=== PATIENT | female | born 1985 ===

== ENCOUNTER 2017-01-09 19:32 | Inpatient (IN) | payer OTHER ==
[2017-01-09] MEDS ORDERED: Piperacillin/Tazobact 4.5 GM in Sodium Chloride 0.9% 100 ML IVPB STA (19:53)
--- NOTE | 2017-01-09 20:01 | ED PDOC ---
HPI: Wound Care - HPI Time Seen by Provider: 01/09/17 19:46 Chief Complaint (Nursing): Wound Check Chief Complaint (Provider): my wound is draining History Per: Patient Exam Limitations: no limitations Current Symptoms Are (Timing): Still Present Location Of Injury: Posterior: Buttock Quality Of Symptoms: Painful Severity: Moderate Additional Complaint(s): 31yo female had wound to buttock debrided several weeks ago, now with pain and drainage from site. Denies fever. States +pain with sitting and walking. Past Medical History Reviewed: Historical Data, Nursing Documentation, Vital Signs Vital Signs: Last Vital Signs Temp 98.6 F 01/09/17 19:38 Pulse 88 01/09/17 19:38 Resp 16 01/09/17 19:38 BP 118/67 01/09/17 19:38 Pulse Ox 100 01/09/17 19:38 - Medical History PMH: No Chronic Diseases - Family History Family History: States: Unknown Family Hx - Living Arrangements Living Arrangements: With Family - Social History Current smoker - smoking cessation education provided: No - Home Medications Home Medications: Ambulatory Orders Medication Instructions Recorded Amoxicillin [Amoxil 250 mg Cap] 1 tab PO BID 01/09/17 - Allergies Allergies/Adverse Reactions: Allergies Allergy/AdvReac Type Severity Reaction Status Date / Time No Known Allergies Allergy Verified 01/09/17 19:38 Review of Systems ROS Statement: Except As Marked, All Systems Reviewed And Found Negative Constitutional: Negative for: Fever, Chills Respiratory: Negative for: Cough, Shortness of Breath Gastrointestinal: Negative for: Nausea, Vomiting Genitourinary Female: Negative for: Dysuria, Frequency Musculoskeletal: Positive for: Back Pain, Other (buttock pain) Skin: Negative for: Rash, Lesions Neurological: Positive for: Numbness (buttocks). Negative for: Weakness Physical Exam - Reviewed Vital Signs Reviewed: Yes - Physical Exam Appears: Positive for: Non-toxic Head Exam: Positive for: ATRAUMATIC Skin: Positive for: Normal Color, Warm Eye Exam: Positive for: EOMI. Negative for: Periorbital swelling Neck: Positive for: Normal, Painless ROM Cardiovascular/Chest: Negative for: Tachycardia Respiratory: Negative for: Respiratory Distress Pulses-Radial (L): 2+ Pulses-Radial (R): 2+ Gastrointestinal/Abdominal: Negative for: Tenderness Back: Positive for: Other (R upper buttock with 5cm open draining wound, tender w mild erythema) Extremity: Positive for: Normal ROM. Negative for: Swelling Neurologic/Psych: Positive for: Alert, Oriented. Negative for: Motor/Sensory Deficits - Laboratory Results Result Diagrams: 01/11/17 06:10 01/10/17 06:50 - ECG O2 Sat by Pulse Oximetry: 100 Pulse Ox Interpretation: Normal Medical Decision Making Medical Decision Making: labs reviewed, mild anemia. Type and screen ordered. Preg neg. Udip unremarkable. Wound cultured and Zosyn initiated. D/w Dr Prasad hospitalist for admission. Likely to require plastics consult. Disposition - Clinical Impression Clinical Impression: Open wound - Patient ED Disposition Is Patient to be Admitted: Yes Counseled Patient/Family Regarding: Studies Performed, Diagnosis - Disposition Disposition Time: 20:25 Condition: STABLE - Pt Status Changed To: Hospital Disposition Of: Inpatient - Admit Certification Admit to Inpatient:: After my assessment, the patient will require hospitalization for at least two midnights. This is because of the severity of symptoms shown, intensity of services needed, and/or the medical risk in this patient being treated as an outpatient. - POA Present On Arrival: None
[2017-01-09 20:35] LABS: BASO # 0.1 K/uL (0.0-0.2); BASO % 0.8 % (0.0-2.0); EOS # 0.4 K/uL (0.0-0.7); EOS % 4.3 % (0.0-4.0); HEMATOCRIT 32.7 % (34.0-47.0); LYMPH % 35.6 % (20.0-40.0); MEAN CORPUSCULAR HEMOGLOBIN 24.3 pg (27.0-31.0); MEAN CORPUSCULAR HGB CONC 31.6 g/dL (33.0-37.0); MEAN PLATELET VOLUME 9.2 fl (7.2-11.7); MONO # 0.7 K/uL (0.0-0.8); MONO % 8.7 % (0.0-10.0); NEUT # 4.3 K/uL (1.8-7.0); NEUT % 50.6 % (50.0-75.0); RED CELL DISTRIBUTION WIDTH 16.3 % (11.5-14.5); WHITE BLOOD COUNT 8.4 K/uL (4.8-10.8)
[2017-01-09 20:47] LABS: ALB/GLOB RATIO 1.3 (1.0-2.1); ALKALINE PHOSPHATASE 53 U/L (38-126); ALT/SGPT 31 U/L (9-52); AST/SGOT 19 U/L (14-36); BILIRUBIN,TOTAL 0.3 mg/dl (0.2-1.3); BLOOD UREA NITROGEN 16 mg/dl (7-17); CALCIUM 9.4 mg/dL (8.4-10.2); CARBON DIOXIDE 24 mmol/L (22-30); CHLORIDE 104 mmol/L (98-107); GFR AFRICAN-AMERICAN > 60; GLUCOSE,RANDOM 97 mg/dL (65-105); POTASSIUM 3.9 MMOL/L (3.6-5.0); SODIUM 139 mmol/l (132-148); TOTAL PROTEIN 7.4 G/DL (6.3-8.2)
--- NOTE | 2017-01-09 22:20 | CP.PCM.HP ---
History of Present Illness - History of Present Illness History of Present Illness: PCP: not on staff Chief Complaint: draining wound at buttock Patient seen and examined in the ED HPI: 31 years old female with no significant medical hx, had wound debridement at the buttock 4 weeks ago. She now comes with moderate, continuous pain at the site on the left buttock , increasing on sitting and walking, and started having Serous drainage today. No Fever, nausea nor vomits, no diarrhea, dysuria nor urinary frequency. PMH: No chronic disease PSH: Cesarian section X2 SH: Never smoked; No Alcohol; no illegal drug use; Live with family; work at [employer] FH: Unknown Family hx Allergies: NKDA Medication: Amoxicillin Present on Admission - Present on Admission Any Indicators Present on Admission: No History of DVT/PE: No History of Uncontrolled Diabetes: No Urinary Catheter: No Decubitus Ulcer Present: No Review of Systems - Constitutional Constitutional: absent: Anorexia, Chills, Fatigue, Fever, Headache - EENT Eyes: absent: Blurred Vision, Decreased Night Vision, Diplopia, Requires Corrective Lenses, Sees Flashes Ears: absent: Ear Pain, Tinnitus, Dizziness Nose/Mouth/Throat: absent: Epistaxis, Nasal Congestion - Cardiovascular Cardiovascular: absent: Chest Pain, Dyspnea, Leg Edema - Respiratory Respiratory: absent: Cough, Wheezing, Chest Congestion - Gastrointestinal Gastrointestinal: absent: Constipation, Diarrhea, Nausea, Vomiting - Genitourinary Genitourinary: absent: Dysuria, Flank Pain, Hematuria - Musculoskeletal Musculoskeletal: absent: Arthralgias, Back Pain, Numbness - Integumentary Additional comments: Left buttock with painful oozing lesion - Neurological Neurological: absent: Confusion, Focal Weakness, Headaches, Weakness - Psychiatric Psychiatric: absent: Anxiety, Depression, Panic Attacks - Endocrine Endocrine: absent: Palpitations, Polydipsia - Hematologic/Lymphatic Hematologic: absent: Easy Bruising Past Patient History - Past Social History Smoking Status: Never Smoked Chewing Tobacco Use: No Cigar Use: No Alcohol: None Drugs: Denies Home Situation {Lives}: With Family - CARDIAC Hx Cardiac Disorders: No - PULMONARY Hx Respiratory Disorders: No - NEUROLOGICAL Hx Neurological Disorder: No - HEENT Hx Blind: No - RENAL Hx Chronic Kidney Disease: No - ENDOCRINE/METABOLIC Hx Endocrine Disorders: No - HEMATOLOGICAL/ONCOLOGICAL Hx Blood Disorders: No - INTEGUMENTARY Hx Dermatological Problems: No - MUSCULOSKELETAL/RHEUMATOLOGICAL Hx Musculoskeletal Disorders: No - GASTROINTESTINAL Hx Gastrointestinal Disorders: No - GENITOURINARY/GYNECOLOGICAL Hx Genitourinary Disorders: No - PSYCHIATRIC Hx Psychophysiologic Disorder: No Hx Substance Use: No - SURGICAL HISTORY Hx Surgeries: Yes Hx Section: Yes (2) - ANESTHESIA Hx Anesthesia: Yes Hx Anesthesia Reactions: No Meds Allergies/Adverse Reactions: Allergies Allergy/AdvReac Type Severity Reaction Status Date / Time No Known Allergies Allergy Verified 01/09/17 19:38 Physical Exam - Constitutional Appears: No Acute Distress - Head Exam Head Exam: ATRAUMATIC, NORMAL INSPECTION, NORMOCEPHALIC - Eye Exam Eye Exam: EOMI, Normal appearance Pupil Exam: NORMAL ACCOMODATION, PERRL - ENT Exam ENT Exam: Mucous Membranes Moist, Normal Exam, Normal External Ear Exam, Normal Oropharynx - Neck Exam Neck exam: Positive for: Full Rom, Normal Inspection. Negative for: Lymphadenopathy, Tenderness - Respiratory Exam Respiratory Exam: Clear to Auscultation Bilateral. absent: Decreased Breath Sounds, Rhonchi, Wheezes - Cardiovascular Exam Cardiovascular Exam: REGULAR RHYTHM, RRR, +S1, +S2. absent: Gallop, JVD - GI/Abdominal Exam GI & Abdominal Exam: Normal Bowel Sounds, Soft. absent: Mass, Tenderness - Rectal Exam Rectal Exam: Deferred - Extremities Exam Extremities exam: Positive for: full ROM, normal inspection (6X4 necrotic wound at the proximal left Buttock with drainage and surrounding erythema). Negative for: joint swelling, pedal edema - Back Exam Back exam: NORMAL INSPECTION. absent: CVA tenderness (L), CVA tenderness (R) - Neurological Exam Neurological exam: Alert, CN II-XII Intact, Oriented x3, Reflexes Normal - Psychiatric Exam Psychiatric exam: Normal Affect, Normal Mood - Skin Skin Exam: Dry, Intact, Normal Color, Warm Results - Vital Signs Recent Vital Signs: Last Vital Signs Temp 97.9 F 01/09/17 22:18 Pulse 92 H 01/09/17 22:18 Resp 13 01/09/17 22:18 BP 117/58 L 01/09/17 22:18 Pulse Ox 99 01/09/17 21:48 - Labs Result Diagrams: 01/09/17 20:31 01/09/17 20:31 Labs: Laboratory Results - last 24 hr 01/09/17 20:40 Blood Type A POSITIVE Antibody Screen Negative BBK History Checked No verified bt Assessment & Plan - Assessment and Plan (Free Text) Plan: #. Necrotic wound with drainage at the left buttock. Will admit for IV Antibiotic - Plastic surgery consult for possible debridement - Zosyn IVPB Q6h - Vancomycin 1gm IVPB Q12H - Pain management with Toradol - follow wound culture. - Date & Time Date: 01/09/17 Time: 22:20
[2017-01-09] MEDS: Sodium Chloride 0.9% 1,000 ML IV SCH (22:31)
[2017-01-10 07:10] LABS: BASO % 0.6 % (0.0-2.0); EOS # 0.4 K/uL (0.0-0.7); EOS % 5.8 % (0.0-4.0); LYMPH % 44.7 % (20.0-40.0); MEAN CELL VOLUME 77.8 fl (81.0-99.0); MEAN CORPUSCULAR HEMOGLOBIN 24.2 pg (27.0-31.0); MEAN CORPUSCULAR HGB CONC 31.2 g/dL (33.0-37.0); MEAN PLATELET VOLUME 8.9 fl (7.2-11.7); MONO # 0.6 K/uL (0.0-0.8); MONO % 8.8 % (0.0-10.0); NEUT # 2.7 K/uL (1.8-7.0); NEUT % 40.1 % (50.0-75.0); RED CELL DISTRIBUTION WIDTH 16.4 % (11.5-14.5); WHITE BLOOD COUNT 6.7 K/uL (4.8-10.8)
[2017-01-10] MEDS: Sodium Chloride 0.9% 1,000 ML IV SCH ×2 (07:28→16:21)
[2017-01-10 07:33] LABS: BLOOD UREA NITROGEN 12 mg/dl (7-17); CALCIUM 8.8 mg/dL (8.4-10.2); CARBON DIOXIDE 26 mmol/L (22-30); CHLORIDE 108 mmol/L (98-107); GFR AFRICAN-AMERICAN > 60; GLUCOSE,RANDOM 88 mg/dL (65-105); POTASSIUM 4.3 MMOL/L (3.6-5.0); SODIUM 141 mmol/l (132-148)
[2017-01-10 07:44] LABS: PARTIAL THROMBOPLASTIN TIME 29.2 Seconds (25.6-37.1)
[2017-01-10] MEDS ORDERED: HYDROmorphone 0.5 mg/0.5 ml ISec IVP PRN ×2 (08:08→11:59)
[2017-01-10] MEDS ORDERED: Lactated Ringer's 1,000 ML IV SCH (08:15)
--- NOTE | 2017-01-10 09:28 | CP.PCM.PN ---
Subjective - Date & Time of Evaluation Date of Evaluation: 01/10/17 Time of Evaluation: 09:28 - Subjective Subjective: pt doing well no complaints pain controlled for OR this morning HD stable NAD Objective - Vital Signs/Intake and Output Vital Signs (last 24 hours): Temp Pulse Resp BP Pulse Ox 98.6 F 83 19 99/64 L 100 01/10/17 00:28 01/10/17 00:28 01/10/17 00:28 01/10/17 00:28 01/10/17 00:28 GEN: WDWN, alert, cooperative HEENT: NCAT, PERRL, EOMI NECK: supple, no JVD, no lymphadenopathy CARDIAC: +S1S2 RRR LUNG: CTAB No WRR ABD: SOFT NT ND BSX4 NO MASSES NO HSM BACK: post op changes, necrotic area L side EXT: +pedal pulses, equal strength NEURO: AAOx3 SKIN warm, dry PSYCH normal mood, normal affect - Medications Medications: Current Medications Hydromorphone HCl (Dilaudid) 0.5 mg IVP Q4 PRN PRN Reason: Pain, severe (8-10) Sodium Chloride (Sodium Chloride 0.9%) 1,000 mls @ 125 mls/hr IV .Q8H [facility] Stop: 01/10/17 22:08 Last Admin: 01/10/17 07:28 Dose: Not Given Vancomycin HCl 1 gm/ Sodium (Chloride) 250 mls @ 166.667 mls/hr IVPB Q12 VINAY Last Admin: 01/10/17 08:35 Dose: 166.667 mls/hr Ketorolac Tromethamine (Toradol) 15 mg IVP Q6 PRN PRN Reason: Pain, moderate (4-7) Ketorolac Tromethamine (Toradol) 30 mg IVP Q6 PRN PRN Reason: Pain, severe (8-10) - Labs Labs: 01/10/17 06:50 01/10/17 06:50 PT 10.9 Seconds (9.8-13.1) 01/10/17 06:50 INR 1.1 (0.9-1.2) 01/10/17 06:50 APTT 29.2 Seconds (25.6-37.1) 01/10/17 06:50 Assessment and Plan - Assessment and Plan (Free Text) Plan: 31 years old female with no significant medical hx, had wound debridement at the buttock 4 weeks ago. She now comes with moderate, continuous pain at the site on the left buttock , increasing on sitting and walking, and started having Serous drainage today. No Fever, nausea nor vomits, no diarrhea, dysuria nor urinary frequency. Necrotic wound with drainage at the left buttock. - Admit for IV Antibiotic - Plastic surgery consult this morning OR today for debridement - Zosyn IVPB Q6h - Vancomycin 1gm IVPB Q12H - Pain management with Toradol - follow wound culture.
[2017-01-10] MEDS ORDERED: Bupivacaine 0.5% Inj(30mL) ONE (10:19)
[2017-01-10] MEDS ORDERED: Lidocaine 1% Inj (20ml) ONE (10:19)
[2017-01-10] MEDS ORDERED: Lidocaine Hydrochloride 0 ML INJ ONE ×2 (10:41→10:50)
[2017-01-10] MEDS ORDERED: Neostigmine Methylsulfate 3mg/3ml Syringe IV ONE (10:41)
[2017-01-10] MEDS ORDERED: Midazolam 2 MG/2 ML VIAL ONE (10:41)
[2017-01-10] MEDS ORDERED: Rocuronium 10 mg/ml (5 ml) ONE (10:41)
[2017-01-10] MEDS ORDERED: Succinylcholine 200 mg/10 ml Inj IV ONE (10:41)
[2017-01-10] MEDS ORDERED: Propofol 10 mg/ml Inj (20 ML) ONE (10:41)
[2017-01-10] MEDS ORDERED: Lactated Ringer's 1,000 ML IV ONE ×2 (10:51→11:30)
[2017-01-10] MEDS ORDERED: Bupivacaine 0.25%-Epinephrine 1:200,000 (30 ml) Inj ONE (10:55)
[2017-01-10] MEDS ORDERED: EPINEPHrine 1 mg/ml (1:1000) Inj ONE (10:58)
[2017-01-10] MEDS ORDERED: Ketamine 50 mg/ml Inj (10 ml) ONE (11:10)
--- NOTE | 2017-01-10 11:48 | PCM.SURG1 ---
Surgeon's Initial Post Op Note - Surgeon's Notes Surgeon: Dr. Dupree Control Technician: Mirna Olivas PGY2, Dean PGY3, Rosa PGY1 Type of Anesthesia: IV Sedation Pre-Operative Diagnosis: wound necrosis on Left back Operative Findings: Wound necrosis [id number] Post-Operative Diagnosis: Same Operation Performed: Wound debridement of L back Specimen/Specimens Removed: necrosis Estimated Blood Loss: EBL {In ML}: 5 Blood Products Given: N/A Drains Used: Wound Vac Post-Op Condition: Good Date of Surgery/Procedure: 01/10/17 Time of Surgery/Procedure: 11:53
[2017-01-10] MEDS ORDERED: DiphenhydrAMINE 50 mg/ml Inj IVP PRN (11:59)
[2017-01-11 06:16] LABS: MEAN CELL VOLUME 77.1 fl (81.0-99.0); MEAN CORPUSCULAR HEMOGLOBIN 24.3 pg (27.0-31.0); MEAN CORPUSCULAR HGB CONC 31.5 g/dL (33.0-37.0); RED CELL DISTRIBUTION WIDTH 16.3 % (11.5-14.5); WHITE BLOOD COUNT 6.7 K/uL (4.8-10.8)
--- NOTE | 2017-01-11 09:08 | CP.PCM.PN ---
Subjective - Date & Time of Evaluation Date of Evaluation: 01/11/17 Time of Evaluation: 09:30 - Subjective Subjective: Patient seen and examined bedside. Feeling well. Complains of pain to lower back and left upper buttock area . Wound Vac to left upper buttock area. Hemodynamically stable, afebrile. No acute issues overnight Objective - Vital Signs/Intake and Output Vital Signs (last 24 hours): Temp Pulse Resp BP Pulse Ox 98.6 F 68 20 95/62 L 99 01/11/17 08:16 01/11/17 08:16 01/11/17 08:16 01/11/17 08:16 01/11/17 08:16 - Medications Medications: Current Medications Acetaminophen (Tylenol 325mg Tab) 650 mg PO Q6 PRN PRN Reason: Fever >100.4 F Heparin Sodium (Porcine) (Heparin) 5,000 units SC Q12 VINAY PRN Reason: Protocol Hydromorphone HCl (Dilaudid) 0.5 mg IVP Q4 PRN PRN Reason: Pain, severe (8-10) Vancomycin HCl 1 gm/ Sodium (Chloride) 250 mls @ 166.667 mls/hr IVPB Q12 VINAY Last Admin: 01/11/17 08:32 Dose: 166.667 mls/hr Ketorolac Tromethamine (Toradol) 15 mg IVP Q6 PRN PRN Reason: Pain, moderate (4-7) Last Admin: 01/11/17 08:30 Dose: 15 mg Ketorolac Tromethamine (Toradol) 30 mg IVP Q6 PRN PRN Reason: Pain, severe (8-10) Ondansetron HCl (Zofran Inj) 4 mg IVP Q4 PRN PRN Reason: Nausea/Vomiting - Labs Labs: 01/11/17 06:10 01/10/17 06:50 PT 10.9 Seconds (9.8-13.1) 01/10/17 06:50 INR 1.1 (0.9-1.2) 01/10/17 06:50 APTT 29.2 Seconds (25.6-37.1) 01/10/17 06:50 - Constitutional Appears: Non-toxic, No Acute Distress - Head Exam Head Exam: ATRAUMATIC, NORMAL INSPECTION, NORMOCEPHALIC - Eye Exam Eye Exam: EOMI, Normal appearance, PERRL Pupil Exam: NORMAL ACCOMODATION - ENT Exam ENT Exam: Mucous Membranes Moist, Normal Exam - Neck Exam Neck Exam: Full ROM, Normal Inspection - Respiratory Exam Respiratory Exam: Clear to Ausculation Bilateral, NORMAL BREATHING PATTERN. absent: Rales, Rhonchi, Wheezes - Cardiovascular Exam Cardiovascular Exam: REGULAR RHYTHM, RRR, +S1, +S2. absent: JVD - GI/Abdominal Exam GI & Abdominal Exam: Soft, Normal Bowel Sounds. absent: Distended, Tenderness, Rebound - Rectal Exam Rectal Exam: Deferred - Extremities Exam Extremities Exam: Full ROM, Normal Capillary Refill, Normal Inspection. absent : Calf Tenderness, Pedal Edema Additional comments: left upper buttock surgical wound with wound vac in place - Back Exam Back Exam: NORMAL INSPECTION - Neurological Exam Neurological Exam: Alert, Awake, CN II-XII Intact, Oriented x3 - Psychiatric Exam Psychiatric exam: Normal Affect, Normal Mood - Skin Skin Exam: Dry, Normal Color, Warm Assessment and Plan - Assessment and Plan (Free Text) Assessment: 31 years old female with no significant medical hx, had wound debridement at the buttock 4 weeks ago. She now comes with moderate, continuous pain at the site on the left buttock , increasing on sitting and walking, and started having Serous drainage today. No Fever, nausea nor vomits, no diarrhea, dysuria nor urinary frequency.Patient found to have necrotic wound so was admitted , started on IV antibiotics and plastic surgery consulted . Patient taken to OR for wound debridement yesterday with wound vac placement 1. Necrotic wound with drainage at the upper left buttock. s/p wound debridement with wound vac placement in OR 01/10 Continue IV vanco and Zosyn Plastic surgery on consult following . Planned to return to OR in AM for more tissue debridement pain management DVt prophylaxis Will keep NPo past midnight for OR tomorrow Hold Heparin in AM 2. DVt prophylaxis Hold heparin in Am
--- NOTE | 2017-01-11 11:38 | CP.PCM.PN ---
Subjective - Date & Time of Evaluation Date of Evaluation: 01/11/17 Time of Evaluation: 11:35 - Subjective Subjective: Surgery: Dr. Dupree Pt seen and examined. She was ambulating the halls. In good spirits. No complaints of pain. Objective - Vital Signs/Intake and Output Vital Signs (last 24 hours): Temp Pulse Resp BP Pulse Ox 98.6 F 68 20 95/62 L 99 01/11/17 08:16 01/11/17 08:16 01/11/17 08:16 01/11/17 08:16 01/11/17 08:16 - Medications Medications: Current Medications Acetaminophen (Tylenol 325mg Tab) 650 mg PO Q6 PRN PRN Reason: Fever >100.4 F Heparin Sodium (Porcine) (Heparin) 5,000 units SC Q12 VINAY PRN Reason: Protocol Hydromorphone HCl (Dilaudid) 0.5 mg IVP Q4 PRN PRN Reason: Pain, severe (8-10) Vancomycin HCl 1 gm/ Sodium (Chloride) 250 mls @ 166.667 mls/hr IVPB Q12 VINAY Last Admin: 01/11/17 08:32 Dose: 166.667 mls/hr Ketorolac Tromethamine (Toradol) 15 mg IVP Q6 PRN PRN Reason: Pain, moderate (4-7) Last Admin: 01/11/17 08:30 Dose: 15 mg Ketorolac Tromethamine (Toradol) 30 mg IVP Q6 PRN PRN Reason: Pain, severe (8-10) Ondansetron HCl (Zofran Inj) 4 mg IVP Q4 PRN PRN Reason: Nausea/Vomiting - Labs Labs: 01/11/17 06:10 01/10/17 06:50 PT 10.9 Seconds (9.8-13.1) 01/10/17 06:50 INR 1.1 (0.9-1.2) 01/10/17 06:50 APTT 29.2 Seconds (25.6-37.1) 01/10/17 06:50 - Constitutional Appears: Non-toxic, No Acute Distress - Head Exam Head Exam: ATRAUMATIC, NORMOCEPHALIC - Eye Exam Eye Exam: EOMI - ENT Exam ENT Exam: Mucous Membranes Moist - Neck Exam Neck Exam: Full ROM - Respiratory Exam Respiratory Exam: NORMAL BREATHING PATTERN. absent: Accessory Muscle Use, Respiratory Distress - Extremities Exam Extremities Exam: absent: Calf Tenderness, Pedal Edema - Back Exam Additional comments: wound vac in place - Neurological Exam Neurological Exam: Alert, Awake, Oriented x3 - Psychiatric Exam Psychiatric exam: Normal Affect, Normal Mood - Skin Skin Exam: Dry, Normal Color, Warm Assessment and Plan - Assessment and Plan (Free Text) Assessment: 31F s/p wound debridement, POD#1 -OR tomorrow for further revision/closure -NPO at midnight -Hold heparin at midnight -c/w current medical care -d/w attending Zemaitis PGY3
[2017-01-12] MEDS: Sodium Chloride 0.9% 1,000 ML IV SCH ×2 (00:11→09:49)
[2017-01-12 06:16] LABS: HEMATOCRIT 28.2 % (34.0-47.0); MEAN CELL VOLUME 77.2 fl (81.0-99.0); MEAN CORPUSCULAR HEMOGLOBIN 24.2 pg (27.0-31.0); MEAN CORPUSCULAR HGB CONC 31.3 g/dL (33.0-37.0); WHITE BLOOD COUNT 5.9 K/uL (4.8-10.8)
[2017-01-12 06:42] LABS: BLOOD UREA NITROGEN 8 mg/dl (7-17); CALCIUM 8.4 mg/dL (8.4-10.2); CARBON DIOXIDE 25 mmol/L (22-30); CHLORIDE 110 mmol/L (98-107); GFR AFRICAN-AMERICAN > 60; GLUCOSE,RANDOM 87 mg/dL (65-105); POTASSIUM 4.3 MMOL/L (3.6-5.0); SODIUM 141 mmol/l (132-148)
--- NOTE | 2017-01-12 11:51 | CP.PCM.PN ---
Subjective - Date & Time of Evaluation Date of Evaluation: 01/12/17 Time of Evaluation: 11:00 - Subjective Subjective: No fever Pain controlled noted drainage from wound in Wound Vac no CP no SOB no abd pain Plan for further debridement , poss closure of wound in OR today Objective - Vital Signs/Intake and Output Vital Signs (last 24 hours): Temp Pulse Resp BP Pulse Ox 98.3 F 74 20 92/61 L 99 01/12/17 10:00 01/12/17 10:00 01/12/17 10:00 01/12/17 10:00 01/12/17 10:00 - Medications Medications: Current Medications Acetaminophen (Tylenol 325mg Tab) 650 mg PO Q6 PRN PRN Reason: Fever >100.4 F Acetaminophen (Tylenol 325mg Tab) 650 mg PO Q6 PRN PRN Reason: Pain, Mild (1-3), headache Last Admin: 01/11/17 19:50 Dose: 650 mg Heparin Sodium (Porcine) (Heparin) 5,000 units SC Q12 VINAY PRN Reason: Protocol Last Admin: 01/11/17 21:02 Dose: 5,000 units Hydromorphone HCl (Dilaudid) 0.5 mg IVP Q4 PRN PRN Reason: Pain, severe (8-10) Vancomycin HCl 1 gm/ Sodium (Chloride) 250 mls @ 166.667 mls/hr IVPB Q12 [facility] Last Admin: 01/12/17 09:49 Dose: 166.667 mls/hr Sodium Chloride (Sodium Chloride 0.9%) 1,000 mls @ 120 mls/hr IV .Q8H20M [facility] Stop: 01/12/17 17:00 Last Admin: 01/12/17 09:49 Dose: 120 mls/hr Ketorolac Tromethamine (Toradol) 15 mg IVP Q6 PRN PRN Reason: Pain, moderate (4-7) Last Admin: 01/12/17 09:57 Dose: 15 mg Ketorolac Tromethamine (Toradol) 30 mg IVP Q6 PRN PRN Reason: Pain, severe (8-10) Ondansetron HCl (Zofran Inj) 4 mg IVP Q4 PRN PRN Reason: Nausea/Vomiting - Labs Labs: 01/12/17 05:55 01/12/17 05:55 PT 10.9 Seconds (9.8-13.1) 01/10/17 06:50 INR 1.1 (0.9-1.2) 01/10/17 06:50 APTT 29.2 Seconds (25.6-37.1) 01/10/17 06:50 - Constitutional Appears: No Acute Distress - Head Exam Head Exam: NORMAL INSPECTION, NORMOCEPHALIC - Eye Exam Eye Exam: EOMI, Normal appearance, PERRL Pupil Exam: NORMAL ACCOMODATION - ENT Exam ENT Exam: Mucous Membranes Moist, Normal External Ear Exam - Neck Exam Neck Exam: Full ROM. absent: Meningismus - Respiratory Exam Respiratory Exam: NORMAL BREATHING PATTERN. absent: Respiratory Distress - Cardiovascular Exam Cardiovascular Exam: REGULAR RHYTHM, +S1, +S2 - GI/Abdominal Exam GI & Abdominal Exam: Soft, Normal Bowel Sounds. absent: Tenderness - Extremities Exam Extremities Exam: Full ROM, Normal Capillary Refill. absent: Calf Tenderness, Pedal Edema - Back Exam Additional comments: Left Buttock necrotic wound with wound Vac in place - Neurological Exam Neurological Exam: Alert, Awake, CN II-XII Intact, Oriented x3 Neuro motor strength exam: Left Upper Extremity: 5, Right Upper Extremity: 5, Left Lower Extremity: 5, Right Lower Extremity: 5 - Psychiatric Exam Psychiatric exam: Normal Affect, Normal Mood - Skin Skin Exam: Dry, Normal Color, Warm Assessment and Plan - Assessment and Plan (Free Text) Assessment: 31 years old female with no significant medical hx, except for a Buttock Wound - had wound debridement at the buttock 4 weeks ago. She now comes with moderate , continuous pain at the site on the left buttock , increasing on sitting and walking, and started having drainage . No Fever, nausea nor vomits, no diarrhea , dysuria nor urinary frequency. Patient found to have necrotic wound so was admitted , started on IV antibiotics and plastic surgery consulted . Patient taken to OR for wound debridement with wound vac placement 01/10 1. Necrotic wound with drainage at the upper left buttock. s/p wound debridement with wound vac placement in OR 01/10 Continue IV vanco Plastic surgery on consult following . Plan for OR today for more tissue debridement pain management Hold Heparin in AM 2. DVt prophylaxis Hold heparin in Am
[2017-01-12] MEDS ORDERED: Propofol 10 mg/ml Inj (20 ML) ONE (15:01)
[2017-01-12] MEDS ORDERED: Midazolam 2 MG/2 ML VIAL ONE (15:01)
[2017-01-12] MEDS ORDERED: Rocuronium 10 mg/ml (5 ml) ONE (15:01)
[2017-01-12] MEDS ORDERED: Succinylcholine 200 mg/10 ml Inj IV ONE (15:02)
[2017-01-12] MEDS ORDERED: Lidocaine 2% MPF (5 ml) Inj ONE (15:07)
[2017-01-12] MEDS ORDERED: Bupivacaine 0.5% Inj(30mL) ONE (15:16)
[2017-01-12] MEDS ORDERED: Lidocaine 1% Inj (20ml) ONE (15:16)
[2017-01-12] MEDS ORDERED: Lactated Ringer's 1,000 ML IV SCH (15:17)
[2017-01-12] MEDS ORDERED: HYDROmorphone 0.5 mg/0.5 ml ISec IVP PRN (15:17)
[2017-01-12] MEDS ORDERED: Bacitracin Ointment 30 GM TUBE ONE (15:19)
[2017-01-12] MEDS ORDERED: Lactated Ringer's 1,000 ML IV ONE (15:23)
[2017-01-12] MEDS ORDERED: Bacitracin OINT 15GM TOP ONE (15:57)
[2017-01-12] MEDS ORDERED: Neostigmine Methylsulfate 2 MG/2 ML ML IV ONE (16:06)
--- NOTE | 2017-01-12 17:11 | PCM.SURG1 ---
Surgeon's Initial Post Op Note - Surgeon's Notes Surgeon: Dr. Dupree Respiratory Therapist: none Type of Anesthesia: General Endo Pre-Operative Diagnosis: left buttock wound Operative Findings: see operative report Post-Operative Diagnosis: same Operation Performed: left buttock flap closure Specimen/Specimens Removed: none Estimated Blood Loss: EBL {In ML}: 10 Blood Products Given: N/A Drains Used: Evan Escobar Post-Op Condition: Good Date of Surgery/Procedure: 01/12/17 Time of Surgery/Procedure: 17:11
[2017-01-12 19:05] VITALS: RESP 18
[2017-01-12 23:25] VITALS: O2SAT 100
[2017-01-13 07:36] VITALS: BP 110/57; PULSE 84; TEMP 99.3
--- NOTE | 2017-01-13 08:47 | CP.PCM.DIS ---
Provider - Provider Date of Admission: 01/09/17 20:35 Attending physician: Irving Prasad Consults: Plastic Sx: Dr Dupree Time Spent in preparation of Discharge (in minutes): 20 Diagnosis - Discharge Diagnosis (1) Wound, open, buttock with complication Status: Acute Hospital Course - Lab Results Lab Results: Micro Results 01/10/17 12:39 Buttock Gram Stain - Final 01/10/17 12:39 Buttock Wound Culture - Preliminary No growth. 01/09/17 20:40 Buttock Gram Stain - Final 01/09/17 20:40 Buttock Wound Culture - Preliminary No growth. Most Recent Lab Values WBC 5.9 K/uL (4.8-10.8) 01/12/17 05:55 RBC 3.65 Mil/uL (3.80-5.20) L 01/12/17 05:55 Hgb 8.8 g/dL (12.0-16.0) L 01/12/17 05:55 Hct 28.2 % (34.0-47.0) L 01/12/17 05:55 MCV 77.2 fl (81.0-99.0) L 01/12/17 05:55 MCH 24.2 pg (27.0-31.0) L 01/12/17 05:55 MCHC 31.3 g/dL (33.0-37.0) L 01/12/17 05:55 RDW 16.0 % (11.5-14.5) H 01/12/17 05:55 Plt Count 181 K/uL (130-400) 01/12/17 05:55 MPV 8.9 fl (7.2-11.7) 01/10/17 06:50 Neut % (Auto) 40.1 % (50.0-75.0) L 01/10/17 06:50 Lymph % (Auto) 44.7 % (20.0-40.0) H 01/10/17 06:50 [place] % (Auto) 8.8 % (0.0-10.0) 01/10/17 06:50 Eos % (Auto) 5.8 % (0.0-4.0) H 01/10/17 06:50 Baso % (Auto) 0.6 % (0.0-2.0) 01/10/17 06:50 Neut # 2.7 K/uL (1.8-7.0) 01/10/17 06:50 Lymph # 3.0 K/uL (1.0-4.3) 01/10/17 06:50 [place] # 0.6 K/uL (0.0-0.8) 01/10/17 06:50 Eos # 0.4 K/uL (0.0-0.7) 01/10/17 06:50 Baso # 0.0 K/uL (0.0-0.2) 01/10/17 06:50 PT 10.9 Seconds (9.8-13.1) 01/10/17 06:50 INR 1.1 (0.9-1.2) 01/10/17 06:50 APTT 29.2 Seconds (25.6-37.1) 01/10/17 06:50 Sodium 141 mmol/l (132-148) 01/12/17 05:55 Potassium 4.3 MMOL/L (3.6-5.0) 01/12/17 05:55 Chloride 110 mmol/L (98-107) H 01/12/17 05:55 Carbon Dioxide 25 mmol/L (22-30) 01/12/17 05:55 Anion Gap 10 (10-20) 01/12/17 05:55 BUN 8 mg/dl (7-17) 01/12/17 05:55 Creatinine 0.6 mg/dL (0.7-1.2) L 01/12/17 05:55 Est GFR ( Amer) > 60 01/12/17 05:55 Est GFR (Non-Af Amer) > 60 01/12/17 05:55 Random Glucose 87 mg/dL (65-105) 01/12/17 05:55 Calcium 8.4 mg/dL (8.4-10.2) 01/12/17 05:55 Total Bilirubin 0.3 mg/dl (0.2-1.3) 01/09/17 20:31 AST 19 U/L (14-36) 01/09/17 20:31 ALT 31 U/L (9-52) 01/09/17 20:31 Alkaline Phosphatase 53 U/L (38-126) 01/09/17 20:31 Total Protein 7.4 G/DL (6.3-8.2) 01/09/17 20:31 Albumin 4.2 g/dL (3.5-5.0) 01/09/17 20:31 Globulin 3.2 gm/dL (2.2-3.9) 01/09/17 20:31 Albumin/Globulin Ratio 1.3 (1.0-2.1) 01/09/17 20:31 Blood Type A POSITIVE 01/09/17 20:40 Antibody Screen Negative 01/09/17 20:40 BBK History Checked No verified bt 01/09/17 20:40 - Hospital Course Hospital Course: 31 years old female with no significant medical hx, except for a Buttock Wound - had wound debridement at the buttock 4 weeks ago. She now comes with moderate , continuous pain at the site on the left buttock , increasing on sitting and walking, and started having drainage . No Fever, nausea nor vomits, no diarrhea , dysuria nor urinary frequency. Patient found to have necrotic wound so was admitted , started on IV antibiotics and plastic surgery consulted . Patient taken to OR for wound debridement with wound vac placement 01/10 and Wound Flap Closure on 01/12. 1. Necrotic wound with drainage at the upper left buttock. s/p wound debridement with wound vac placement in OR 01/10 s/p Left Buttock Wound Flap closure on 01/12 SHANTELL Drain placed Received IV vanco Plastic surgery consulted pain management- pain controlled Cleared by Plastic for discharge home on PO Augmentin 2. DVt prophylaxis Heparin Discharge Exam - Head Exam Head Exam: NORMAL INSPECTION, NORMOCEPHALIC - Eye Exam Eye Exam: EOMI, Normal appearance, PERRL Pupil Exam: NORMAL ACCOMODATION - ENT Exam ENT Exam: Mucous Membranes Moist, Normal External Ear Exam - Neck Exam Neck exam: Full Rom - Respiratory Exam Respiratory Exam: NORMAL BREATHING PATTERN. absent: Respiratory Distress - Cardiovascular Exam Cardiovascular Exam: REGULAR RHYTHM, +S1, +S2 - GI/Abdominal Exam GI & Abdominal Exam: Normal Bowel Sounds, Soft. absent: Tenderness - Extremities Exam Extremities exam: full ROM, normal capillary refill, pedal pulses present Additional comments: no calf tenderness - Back Exam Back exam: FULL ROM. absent: CVA tenderness (L), CVA tenderness (R) Additional comments: Left buttock wound with dressing, SHANTELL drain in place with minimal serosanguinous fluid - Neurological Exam Neurological exam: Alert, CN II-XII Intact, Normal Gait, Oriented x3, Reflexes Normal - Psychiatric Exam Psychiatric exam: Normal Affect, Normal Mood - Skin Skin Exam: Dry, Normal Color, Warm Discharge Plan - Discharge Medications Prescriptions: Amoxicillin/Potassium Clav [Augmentin 500-125 Tablet] 1 each PO BID 7 Days - Follow Up Plan Condition: GOOD Disposition: HOME/ ROUTINE Instructions: [place] Drain Care (DC), Incision and Drainage (DC) Additional Instructions: Follow up with Dr. Dupree in 1 week. Call office for appointment. Take antibiotic as prescribed. Do not bathe or wet incisions. Keep clean and dry. Referrals: Karina Dupree [Medical Doctor] -
--- NOTE | 2017-01-13 10:51 | CP.PCM.PN ---
Subjective - Date & Time of Evaluation Date of Evaluation: 01/13/17 Time of Evaluation: 10:49 - Subjective Subjective: Surgery: Dr. Dupree Patient doing very well today. She states pain is controlled and has not required medication. She reports emptying her own SHANTELL drain but has not had much output. She denies f/c. Objective - Vital Signs/Intake and Output Vital Signs (last 24 hours): Temp Pulse Resp BP Pulse Ox 99.3 F 84 18 110/57 L 100 01/13/17 07:35 01/13/17 07:35 01/13/17 07:35 01/13/17 07:35 01/13/17 07:35 - Medications Medications: Current Medications Acetaminophen (Tylenol 325mg Tab) 650 mg PO Q6 PRN PRN Reason: Fever >100.4 F Acetaminophen (Tylenol 325mg Tab) 650 mg PO Q6 PRN PRN Reason: Pain, Mild (1-3), headache Last Admin: 01/13/17 07:39 Dose: 650 mg Heparin Sodium (Porcine) (Heparin) 5,000 units SC Q12 VINAY PRN Reason: Protocol Last Admin: 01/11/17 21:02 Dose: 5,000 units Vancomycin HCl 1 gm/ Sodium (Chloride) 250 mls @ 166.667 mls/hr IVPB Q12 VINAY Last Admin: 01/13/17 09:11 Dose: Not Given Ketorolac Tromethamine (Toradol) 15 mg IVP Q6 PRN PRN Reason: Pain, moderate (4-7) Last Admin: 01/12/17 09:57 Dose: 15 mg Ketorolac Tromethamine (Toradol) 30 mg IVP Q6 PRN PRN Reason: Pain, severe (8-10) Ondansetron HCl (Zofran Inj) 4 mg IVP Q4 PRN PRN Reason: Nausea/Vomiting Tramadol HCl (Ultram) 50 mg PO Q6 PRN PRN Reason: Pain, moderate (4-7) Last Admin: 01/13/17 00:42 Dose: 50 mg - Labs Labs: 01/12/17 05:55 01/12/17 05:55 PT 10.9 Seconds (9.8-13.1) 01/10/17 06:50 INR 1.1 (0.9-1.2) 01/10/17 06:50 APTT 29.2 Seconds (25.6-37.1) 01/10/17 06:50 - Constitutional Appears: Non-toxic, No Acute Distress - Head Exam Head Exam: ATRAUMATIC, NORMOCEPHALIC - Eye Exam Eye Exam: EOMI, Normal appearance - ENT Exam ENT Exam: Mucous Membranes Moist - Respiratory Exam Respiratory Exam: NORMAL BREATHING PATTERN. absent: Respiratory Distress - Cardiovascular Exam Cardiovascular Exam: REGULAR RHYTHM. absent: Tachycardia - Back Exam Additional comments: left superior gluteal area w/ dressing from wound closure CDI, SHANTELL w/ minimal output SA fluid. Assessment and Plan - Assessment and Plan (Free Text) Assessment: 31F s/p wound debridement, POD3 and POD1 from wound closure -cleared for d/c -f/u in 1 week -augmentin for 7 days -rx in chart -no bathing, soaking incisions -light activity, no bending/lifting -d/w Dr. Alex Mar PGY3
--- NOTE | 2017-01-29 12:23 | OP ---
PROCEDURE DATE: 01/12/2017 SURGEON: Dr. Karina Dupree. ANESTHESIA ADMINISTERED BY: Dr. Mon. TYPE OF ANESTHESIA: General endotracheal tube anesthesia. PREOPERATIVE DIAGNOSES: 1. A 15 x 5 cm left buttock open wound. 2. Left buttock open wound status post debridement of necrotic tissue and open wound. POSTOPERATIVE DIAGNOSES: 1. A 15 x 5 cm left buttock open wound. 2. Left buttock open wound status post debridement of necrotic tissue and open wound. PROCEDURES PERFORMED: 1. A 16 x 17 or 272 cm2 wound preparation of left buttock for flap closure. 2. A 16 x 17 or 272 cm2 local tissue rearrangement for flap closure of left buttock open wound. 3. Pulsatile lavage irrigation of left buttock open wound. 4. Exploration of left buttock open wound. INDICATIONS FOR THE PROCEDURE: As follows. This is a 31-year-old female who I had previously operated on a couple of days ago. It was at that time I did a washout, debridement of left buttock open wound with necrotic skin. Wound cultures have come back negative; however, the patient has been on IV antibiotics, so white counts were normal. She has remained afebrile. The patient has had wound VAC with serous drainage. Today, the plan was to take the patient back to the operating room for further washout and possible flap closure. Risks and benefits of the operation including, but not limited to, wound dehiscence, poor scarring, keloid scarring, seroma, asymmetry, poor cosmetic outcome, and infection were discussed with the patient. It was told that we would leave a drain, and again, it was reiterated to the patient that the wound may dehiscent and at this point, we are going to let it heal secondarily and all questions were answered. DESCRIPTION OF PROCEDURE: The patient was taken to the operating room and placed under general endotracheal tube anesthesia. Perioperative antibiotics were given. SCDs were placed on bilateral lower extremities. She was then placed in the prone position. After appropriate positioning and padding, the wound VAC was removed. The buttock was prepped and draped in the usual clean and sterile manner. We started with the 15 x 5 cm open wound. There was good granulation tissue. There were no obvious signs of infection. We first did pulsatile lavage irrigation of the entire area with antibiotic irrigation. We then scraped the wound with a curette to take off any of the fibrinous exudate, so we did wound preparation after we undermined the tissue, so a 16 x 17 or 272 cm2 of wound preparation that was performed with back of a Bovie scratch pad and a curette. After doing this, we then explored to make sure there were no seromas anywhere. Laterally, as we made the incision slightly larger, there was a seroma in the left lateral hip, which was drained; however, this was small. After this, we undermined superiorly and inferiorly with electrocautery, and we raised fasciocutaneous flaps. There was too much tension since it was a 5-cm wide wound for primary closure, so, back cut was made and the tissues were reoriented with [place] clamps to change the tension, and the skin was still tapped with a surgical marker. We then ended up performing the 16 x 17 or 272 cm2 adjacent tissue transfer for closure after we prepared the flap for closure by preparing it. We then used 0 Vicryl sutures to align and approximate the Ace's fascia, 2-0 Vicryl sutures to align and approximate the deep dermis in an interrupted fashion, and a running 3-0 Monocryl for subcuticular layer. We then placed bacitracin, Xeroform, Telfa, and Tegaderm. There was minimal tension after performing the back cut in the rotation flap. Prior to closing, I left a 10-mm SHANTELL in the subcutaneous space, which I took out through an anterolateral stab incision and secured it in place with a 2-0 silk suture. The patient was flipped over and extubated. DRAIN: A 10-mm SHANTELL, left buttock. ESTIMATED BLOOD LOSS: About 25 mL. COMPLICATIONS: None. CONDITION: None. SPECIMEN: None. Karina Dupree MD
--- NOTE | 2017-01-29 14:28 | CON ---
DATE: 01/09/2017 EMERGENCY ROOM CONSULTATION SURGEON: Karina Dupree MD This is a 31-year-old female who presented to emergency room at [facility] with drainage and open wound of the left buttock. The patient underwent a reconstructive surgery approximately one month ago for significant debridement and flap closure, soft tissue necrosis from bilateral buttocks and back. The patient presented to the emergency room because of severe drainage as well as an open wound. The ER staff consulted me. In the physical exam, on the patient left buttock, there was about 5 x 3 cm area of necrotic skin likely full thickness skin loss, central portion had an open wound that was about 1 cm when drainage was coming out. At this point, given the open wound, I admitted the patient with IV antibiotics and explained to the patient that I will see how she does, we will send some cultures, but she may need to have surgical debridement and VAC placement because of the drainage and the full thickness of wound. The patient was thus admitted to the medical service for IV antibiotics and local wound care. Karina Dupree MD
--- NOTE | 2017-01-29 20:47 | OP ---
PROCEDURE DATE: 01/10/2017 PREOPERATIVE DIAGNOSES: 1. Left buttock 5 x 3 cm necrotic skin with open wound. 2. Possible infection of left buttock. POSTOPERATIVE DIAGNOSES: 1. Left buttock 5 x 3 cm necrotic skin with open wound. 2. Possible infection of left buttock. PROCEDURE PERFORMED: As follows: 1. Debridement of necrotic tissue from the buttock. 2. Pulsatile lavage irrigation of left buttock open wound. 3. Exploration of left buttock. 4. Wound VAC placement. SURGEON: Dr. Karina Dupree. TYPE OF ANESTHESIA: Local with sedation. ANESTHESIA ADMINISTERED BY: Vitaliy Almonte MD ESTIMATED BLOOD LOSS: 20 mL. DRAINS: Wound VAC, left buttock. INDICATION FOR PROCEDURE: Please refer to my separately dictated ER consultation for history and physical. DESCRIPTION OF PROCEDURE: The patient was taken to the operating room and placed in the prone position given IV sedation. Perioperative antibiotics were confirmed. SCDs were placed on bilateral lower extremities. A 50 mL of 0.25% Marcaine mixed with 1% Lidocaine with 1:100,000 epinephrine was used in the left buttock open wound. Since there was a significantly wide 5 cm wide area of necrotic skin with an open wound that was draining, I had to draw out a 15 x 5 cm area of skin excision and this area was anesthetized and marked out. The area was then prepped and draped in usual clean and sterile with #10 blade, we cut out the skin and then with electrocautery, we cut out this necrotic tissue and the open wound. We then explored to see if there is any communication with the anterior portion of the buttock to see if there is any seroma by making the incision larger, there was none. We obtained hemostasis with electrocautery. We then used pulsatile lavage antibiotic irrigation. We sent wound culture to the lab. At this point, we were left with a 15 cm long x 5 cm wide open wound that was impossible to be closed with a potential infection. We are going to wait for the wound cultures to come back and treat her with a wound VAC, so a wound VAC was placed, set to 125 mmHg. She was flipped over, awoken and transferred to recovery room in stable condition. FINDINGS: As above. SPECIMEN: Necrotic skin and soft tissue from left buttock. COMPLICATIONS: None. CONDITION: Stable. Karina Dupree MD [facility] # [id number]
== END 2017-01-13 10:51 | disposition home or self-care (01) | DRG 578 ==
LOC: H.ER 19:32 → H.ERHOLD 20:35 → H.MEDSURG1 22:19
PROVIDERS: ADMIT Internal Medicine; ATTEND Internal Medicine
PROC: 0HB8XZZ Excision of Buttock Skin, External Approach (ICD-10-PCS; principal; 2017-01-10 10:30)
PROC: 0HX8XZZ Transfer Buttock Skin, External Approach (ICD-10-PCS; 2017-01-12)
PROC: 0HQ8XZZ Repair Buttock Skin, External Approach (ICD-10-PCS; 2017-01-12)
DX: S31.829A Unspecified open wound of left buttock, initial encounter (principal); D64.9 Anemia, unspecified; Y92.9 Unspecified place or not applicable